=== PATIENT | male | born 1950 | race Two or more races ===

== ENCOUNTER 2018-06-10 12:22 | Outpatient (CLI) | payer OTHER | END 2018-06-10 13:07 | disposition home or self-care (01) | LOC: RAD 12:22 | DX: M12.542 Traumatic arthropathy, left hand (principal); M12.541 Traumatic arthropathy, right hand ==

== ENCOUNTER 2018-11-21 09:41 | Outpatient (CLI) | payer OTHER | END 2018-11-21 09:49 | disposition home or self-care (01) | LOC: RAD 09:41 | DX: G54.4 Lumbosacral root disorders, not elsewhere classified (principal); J44.9 Chronic obstructive pulmonary disease, unspecified ==

== ENCOUNTER → 2018-12-30 | Outpatient (CLI) | payer OTHER | END | disposition home or self-care (01) | LOC: RAD 10:56 | DX: M54.2 Cervicalgia (principal); M46.93 Unspecified inflammatory spondylopathy, cervicothoracic region ==